=== PATIENT | male | born 2000 | race Caucasian/White ===

== ENCOUNTER 2019-11-12 02:08 | Emergency (ER) | payer MEDICAID ==
--- NOTE | 2019-11-12 02:48 | EDM.PDOC ---
ED HPI GENERAL MEDICAL PROBLEM - General Chief Complaint: Drug or Alcohol Abuse Stated Complaint: MEDICAL [facility]IA [facility] Time Seen by Provider: 11/12/19 02:41 Source of Information: Reports: Patient History Limitations: Reports: No Limitations - History of Present Illness INITIAL COMMENTS - FREE TEXT/NARRATIVE: 19 years old male patient brought in by ambulance for evaluation. Patient stated that he had 4 beers tonight and he smoked liquid acid and THC. Feeling nauseated and vomited once. Denies any trauma or injury. Denies any headache. Denies any chest pain or shortness breath. Denies any cough or fever. Denies any abdominal pain diarrhea or constipation. Denies any urinary symptom. 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 - Physical Exam Exam: See Below Exam Limited By: Intoxication General Appearance: Alert, No Apparent Distress Ears: Normal External Exam, Hearing Grossly Normal Nose: Normal Inspection, Normal Mucosa, No Blood Throat/Mouth: Normal Inspection, Normal Lips, Normal Teeth, Normal Gums, Normal Oropharynx, Normal Voice, No Airway Compromise Head Exam: Atraumatic, Normocephalic Neck: Normal Inspection, Supple, Non-Tender, Full Range of Motion Respiratory/Chest: No Respiratory Distress, Lungs Clear, Normal Breath Sounds, No Accessory Muscle Use, Chest Non-Tender Cardiovascular: Normal Peripheral Pulses, Regular Rate, Rhythm, No Edema, No Gallop, No JVD, No Murmur, No Rub GI/Abdominal: Normal Bowel Sounds, Soft, Non-Tender, No Organomegaly, No Distention, No Abnormal Bruit, No Mass Neuro Exam (Abbreviated): Alert, Oriented, CN II-XII Intact, Normal Cognition, Normal Reflexes, No Motor/Sensory Deficits, Other (slightly intoxicated) Course - Vital Signs Last Recorded V/S: Last Vital Signs Temp 37.0 C 11/12/19 06:57 Pulse 86 11/12/19 07:24 Resp 16 11/12/19 07:24 BP 126/72 11/12/19 07:24 Pulse Ox 100 11/12/19 07:24 - Orders/Labs/Meds Orders: Active Orders 24 hr Category Date Time Status Cardiac Monitoring [RC] .As Directed Care 11/12/19 03:19 Active DRUG SCREEN, URINE [URCHEM] Stat Lab 11/12/19 03:15 Ordered Sodium Chloride 0.9% [Normal Saline] 1,000 ml Med 11/12/19 04:15 Active IV ASDIRECTED Medication Orders Sodium Chloride (Normal Saline) 1,000 mls @ 150 mls/hr IV ASDIRECTED GENEVA Last Admin: 11/12/19 04:03 Dose: 150 mls/hr Documented by: BORIS Labs: Laboratory Tests 11/12/19 11/12/19 11/12/19 Range/Units 02:51 03:03 03:03 WBC 8.2 (4.5-11.0) K/uL RBC 4.73 (4.30-5.90) M/uL Hgb 12.9 (12.0-15.0) g/dL Hct 38.8 L (40.0-54.0) % MCV 82 (80-98) fL MCH 27 (27-31) pg MCHC 33 (32-36) % Plt Count 283 (150-400) K/uL Neut % (Auto) 73 H (36-66) % Lymph % (Auto) 18 L (24-44) % [place] % (Auto) 8 H (2-6) % Eos % (Auto) 1 L (2-4) % Baso % (Auto) 0 (0-1) % Sodium 137 L (140-148) mmol/L Potassium 3.9 (3.6-5.2) mmol/L Chloride 101 (100-108) mmol/L Carbon Dioxide 26 (21-32) mmol/L Anion Gap 13.9 (5.0-14.0) mmol/L BUN 13 (7-18) mg/dL Creatinine 0.9 (0.8-1.3) mg/dL Est Cr Clr Drug Dosing 122.41 mL/min Estimated GFR (MDRD) > 60 (>60) Glucose 131 H (74-106) mg/dL Calcium 8.3 L (8.5-10.1) mg/dL Salicylates (2.0-20.0) mg/dL Urine Opiates Screen Negative (NEGATIVE) Ur Oxycodone Screen Negative (NEGATIVE) Urine Methadone Screen Negative (NEGATIVE) Ur Propoxyphene Screen Negative (NEGATIVE) Acetaminophen 0.0 L (10.0-30.0) ug/mL Ur Barbiturates Screen Negative (NEGATIVE) Ur Tricyclics Screen Negative (NEGATIVE) Ur Phencyclidine Scrn Negative (NEGATIVE) Ur Amphetamine Screen Negative (NEGATIVE) U Methamphetamines Scrn Negative (NEGATIVE) Urine MDMA Screen Negative (NEGATIVE) U Benzodiazepines Scrn Negative (NEGATIVE) U Cocaine Metab Screen Negative (NEGATIVE) U Marijuana (THC) Screen Negative (NEGATIVE) Ethyl Alcohol mg/dL 11/12/19 11/12/19 Range/Units 03:03 03:03 WBC (4.5-11.0) K/uL RBC (4.30-5.90) M/uL Hgb (12.0-15.0) g/dL Hct (40.0-54.0) % MCV (80-98) fL MCH (27-31) pg MCHC (32-36) % Plt Count (150-400) K/uL Neut % (Auto) (36-66) % Lymph % (Auto) (24-44) % [place] % (Auto) (2-6) % Eos % (Auto) (2-4) % Baso % (Auto) (0-1) % Sodium (140-148) mmol/L Potassium (3.6-5.2) mmol/L Chloride (100-108) mmol/L Carbon Dioxide (21-32) mmol/L Anion Gap (5.0-14.0) mmol/L BUN (7-18) mg/dL Creatinine (0.8-1.3) mg/dL Est Cr Clr Drug Dosing mL/min Estimated GFR (MDRD) (>60) Glucose (74-106) mg/dL Calcium (8.5-10.1) mg/dL Salicylates 0.8 L (2.0-20.0) mg/dL Urine Opiates Screen (NEGATIVE) Ur Oxycodone Screen (NEGATIVE) Urine Methadone Screen (NEGATIVE) Ur Propoxyphene Screen (NEGATIVE) Acetaminophen (10.0-30.0) ug/mL Ur Barbiturates Screen (NEGATIVE) Ur Tricyclics Screen (NEGATIVE) Ur Phencyclidine Scrn (NEGATIVE) Ur Amphetamine Screen (NEGATIVE) U Methamphetamines Scrn (NEGATIVE) Urine MDMA Screen (NEGATIVE) U Benzodiazepines Scrn (NEGATIVE) U Cocaine Metab Screen (NEGATIVE) U Marijuana (THC) Screen (NEGATIVE) Ethyl Alcohol 103 mg/dL Meds: Medications Generic Name Dose Route Start Last Admin Trade Name Freq PRN Reason Stop Dose Admin Sodium Chloride 1,000 mls @ 150 mls/hr 11/12/19 04:15 11/12/19 04:03 Normal Saline IV 150 mls/hr ASDIRECTED GENEVA Administration Discontinued Medications Generic Name Dose Route Start Last Admin Trade Name Freq PRN Reason Stop Dose Admin Sodium Chloride 1,000 mls @ 999 mls/hr 11/12/19 03:00 11/12/19 03:00 Normal Saline IV 11/12/19 04:00 999 mls/hr .BOLUS ONE Administration Ondansetron HCl 4 mg 11/12/19 02:51 11/12/19 03:00 Zofran IVPUSH 11/12/19 02:52 4 mg ONETIME ONE Administration - Re-Assessments/Exams Free Text/Narrative Re-Assessment/Exam: 11/12/19 07:30 Patient was seen and examined shortly after arrival. Stable. Given 1 L of normal saline bolus then second liter 1 50 mL/h. Lab reviewed. No significant acute abnormalities. Poison control was contacted. they recommended observing some patient for 4 hour period. Patient was observed in the ER for almost 5 hours. This morning his more awake, alert and oriented. Up walking and talking. Feeling stable his feeds. Denies any suicidal or homicidal thoughts. Stated that he was just trying to get high. Feeling safe going home. Advised to rest and stay well- hydrated. Stable weight from these drugs and alcohol. Close follow-up with PCP. Come back for any concern or any worsening symptom. Patient and his father agrees with the plan. Stable for discharge. Departure - Departure Time of Disposition: 07:33 Disposition: Home, Self-Care 01 Condition: Good Clinical Impression: Drug intoxication, Drug abuse, Alcohol abuse - Discharge Information Instructions: Substance Use Disorder Referrals: PCP,None [Primary Care Provider] - Forms: ED Department Discharge Sepsis Event Note (ED) - Focused Exam Vital Signs: Vital Signs Temp Pulse Resp BP Pulse Ox 11/12/19 07:24 86 16 126/72 100 11/12/19 06:57 37.0 C 11/12/19 06:37 70 14 93/37 L 96 11/12/19 06:12 36.9 C 69 12 105/57 L 95 11/12/19 05:43 99 14 107/50 L 96 11/12/19 05:15 71 16 102/51 L 11/12/19 05:08 36.9 C 79 15 87/53 L 97 11/12/19 04:33 83 16 89/44 L 94 L 11/12/19 04:02 36.8 C 84 15 99/49 L 100 11/12/19 03:33 90 16 104/46 L 94 L 11/12/19 02:45 36.6 C 88 15 113/48 L 94 L 11/12/19 02:44 36.6 C 88 15 113/48 L 94 L - My Orders Last 24 Hours: My Active Orders 11/12/19 03:15 DRUG SCREEN, URINE [URCHEM] Stat 11/12/19 03:19 Cardiac Monitoring [RC] .As Directed 11/12/19 04:15 Sodium Chloride 0.9% [Normal Saline] 1,000 ml IV ASDIRECTED - Assessment/Plan Last 24 Hours: My Active Orders 11/12/19 03:15 DRUG SCREEN, URINE [URCHEM] Stat 11/12/19 03:19 Cardiac Monitoring [RC] .As Directed 11/12/19 04:15 Sodium Chloride 0.9% [Normal Saline] 1,000 ml IV ASDIRECTED Plan: Advised to rest and stay well-hydrated. Stable weight from these drugs and alcohol. Close follow-up with PCP. Come back for any concern or any worsening symptom. Patient and his father agrees with the plan. Stable for discharge
[2019-11-12] MEDS ORDERED: Ondansetron 4 MG/2 ML SDV IVPUSH ONE (02:51)
[2019-11-12] MEDS ORDERED: Sodium Chloride 0.9% 1,000 ML IV ONE (03:00)
[2019-11-12] MEDS ORDERED: Sodium Chloride 0.9% 1,000 ML IV SCH (04:15)
== END 2019-11-12 07:44 | disposition home or self-care (01) ==
LOC: JP.ED 02:08
DX: F12.129 Cannabis abuse with intoxication, unspecified (principal); F10.10 Alcohol abuse, uncomplicated; Y90.5 Blood alcohol level of 100-119 mg/100 ml
CPT/HCPCS: 36415; 80048; 80305; 80307; 85025; 96361; 96374; 99284; J2405; J7030